=== PATIENT | female | born 1965 | race Caucasian/White ===

== ENCOUNTER 2021-12-25 21:47 | Emergency (ER) | payer BC ==
[2021-12-25 22:31] LABS: HEMOGLOBIN 12.9 gm/dl (12.3-15.3); RED BLOOD COUNT 4.29 M/UL (4.00-5.10); WHITE BLOOD COUNT 7.7 K/UL (4.5-11.0)
[2021-12-25 23:01] LABS: BUN/CREATININE RATIO 22 (0-10)
[2021-12-26] MEDS ORDERED: IBUPROFEN600 MG PO (03:06)
[2021-12-26] MEDS ORDERED: NORFLEX 100 MG100 MG PO (03:06)
== END 2021-12-26 03:45 | disposition home or self-care (01) ==
LOC: ER1 21:47
PROVIDERS: Physician Assistant
DX: M54.6 Pain in thoracic spine (principal); R07.9 Chest pain, unspecified; I10 Essential (primary) hypertension; Z88.0 Allergy status to penicillin
CPT/HCPCS: 71045; 80053; 81001; 82150; 82550; 82553; 83690; 83880; 84484; 85025; 85379; 85610; 85730; 93005; 96372; 99285; J1885; J2360